=== PATIENT | male | born 1950 | race Two or more races ===

== ENCOUNTER 2021-07-21 13:43 | Emergency (ER) | payer OTHER ==
[~2021-07-21] VITALS: Ht 167.6 cm; Wt 80.7 kg
[2021-07-21] MEDS ORDERED: AMLODIPINE-OLM1 EAC3 PO (13:53)
[2021-07-21] MEDS ORDERED: ROSUVASTATIN CA40 MG PO (13:53)
[2021-07-21] MEDS ORDERED: OMEPRAZOLE20 M1 PO (13:53)
[2021-07-21] MEDS ORDERED: CLOBETASOL PROP15 GM TP (13:53)
[2021-07-21] MEDS ORDERED: DICLOFENAC SODI75 MG PO (13:54)
[2021-07-21] MEDS ORDERED: ALPRAZOLAM2 MG PO (13:54)
== END 2021-07-21 21:12 | disposition home or self-care (01) ==
LOC: ER 13:43
DX: R10.84 Generalized abdominal pain (principal)